=== PATIENT | female | born 1960 | race Caucasian/White ===

== ENCOUNTER 2019-01-26 13:49 | Emergency (ER) | payer OTHER ==
[~2019-01-26] VITALS: Ht 170.2 cm; Wt 104.2 kg
[2019-01-26] MEDS ORDERED: NON-325T5 PO (13:58)
[2019-01-26 16:59] VITALS: BP 130/65
--- NOTE | 2019-01-26 17:24 | REP ---
Left humerus: Two views. History: Left upper extremity pain after injury. Findings: Two views of the left humerus demonstrate normal bones, joints and soft tissues. No fracture is seen. There is mild AC joint narrowing and sclerosis. Impression: No traumatic abnormality noted. 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 Electronically Signed by Jimmy Cuellar MD 01/26/2019 05:25 P
--- NOTE | 2019-01-26 19:40 | REP ---
ULTRASOUND SOFT TISSUES LEFT UPPER ARM: Real-time sonographic evaluation of the left upper arm was performed at the site of prior trauma and palpable lump. There is scattered ill-defined edema in the soft-tissues. No discrete cystic or solid mass is seen. No fluid collection is seen. IMPRESSION: Only soft tissue edema seen in the region of the palpable lump with no discrete mass or fluid collection. Electronically Signed by Lawrence Dickens MD 01/28/2019 09:59 A
== END 2019-01-26 17:03 | disposition home or self-care (01) ==
LOC: M ED 13:49
DX: S40.022A Contusion of left upper arm, initial encounter (principal); W22.8XXA Striking against or struck by other objects, initial encounter; Y92.89 Other specified places as the place of occurrence of the external cause; Y93.9 Activity, unspecified; Y99.0 Civilian activity done for income or pay; R60.0 Localized edema; Z87.891 Personal history of nicotine dependence

== ENCOUNTER → 2020-06-14 | Outpatient (CLI) | payer SELFPAY ==
[~2020-06-14] MED LIST: ACET-838 PO
== END ==
LOC: M LABSMTC 13:40
PROVIDERS: ATTEND Pediatrics
DX: Z20.822 Contact with and (suspected) exposure to COVID-19 (principal)